=== PATIENT | male | born 1955 | race Caucasian/White ===

== ENCOUNTER → 2016-03-21 | Outpatient (CLI) | payer OTHER ==
[~2016-03-21] MED LIST: MULT-506 PO; ZCRUNK PO
[2016-03-21 11:17] LABS: ALT/SGPT 27 U/L (12-78); AST/SGOT 15 U/L (15-37); BLOOD UREA NITROGEN 12 mg/dl (7-18); BUN/CREATININE RATIO 10.6 (10-20); CALCIUM 9.2 mg/dl (8.5-10.1); CARBON DIOXIDE 29 mmol/L (21-32); CHLORIDE 106 mmol/L (98-107); GLUCOSE 125 mg/dl (70-99); SODIUM 141 mmol/L (136-145)
[2016-03-21 11:20] LABS: ALB/GLOB RATIO 1.3 (0.9-2); ALKALINE PHOSPHATASE 86 U/L (45-117); CHOLESTEROL 183 mg/dl (0-200); CHOLESTEROL/HDL RATIO 3.3; HDL CHOLESTEROL 56 mg/dl; LDL CHOLESTEROL CALCULATED 100 mg/dl; TRIGLYCERIDES 135 mg/dl (0-150); VERY LOW DENSITY LIPOPROT CALC 27 mg/dl
[2016-03-21 11:21] LABS: ESTIMATED AVERAGE GLUCOSE 120 mg/dl; HA1C FLAG Normal (Normal)
== END | disposition home or self-care (01) ==
LOC: C.LABBC 07:57
PROVIDERS: ATTEND Internal Medicine Geriatric Medicine
DX: M19.90 Unspecified osteoarthritis, unspecified site (principal); E78.5 Hyperlipidemia, unspecified; R73.9 Hyperglycemia, unspecified; R03.0 Elevated blood-pressure reading, without diagnosis of hypertension; Z11.59 Encounter for screening for other viral diseases

== ENCOUNTER → 2016-09-17 | Outpatient (CLI) | payer OTHER ==
[2016-09-17 11:35] LABS: ALT/SGPT 30 U/L (12-78); AST/SGOT 20 U/L (15-37); BLOOD UREA NITROGEN 12 mg/dl (7-18); BUN/CREATININE RATIO 11.2 (10-20); CALCIUM 8.6 mg/dl (8.5-10.1); CARBON DIOXIDE 28 mmol/L (21-32); CHLORIDE 107 mmol/L (98-107); GLUCOSE 126 mg/dl (70-99); POTASSIUM 4.2 mmol/L (3.5-5.1); SODIUM 140 mmol/L (136-145)
[2016-09-17 11:36] LABS: ESTIMATED AVERAGE GLUCOSE 131 mg/dl; HA1C FLAG Normal (Normal)
[2016-09-17 11:47] LABS: ALB/GLOB RATIO 1.3 (0.9-2); ALKALINE PHOSPHATASE 92 U/L (45-117)
[2016-09-17 12:59] LABS: LYME DISEASE AB IGG NEG (NEG)
[2016-09-17 13:02] LABS: LYME DISEASE AB IGM NEG (NEG)
== END | disposition home or self-care (01) ==
LOC: C.LABBC 07:58
PROVIDERS: ATTEND Internal Medicine Geriatric Medicine
DX: R73.9 Hyperglycemia, unspecified (principal); I10 Essential (primary) hypertension; R20.0 Anesthesia of skin

== ENCOUNTER → 2016-09-21 | Outpatient (CLI) | payer OTHER ==
[~2016-09-21] MED LIST changes: +GADAVIST IV PRN
--- NOTE | 2016-09-21 08:04 | DIAGNOSTIC IMAGING REPORT ---
BRAIN COMBO HISTORY:60 [id number] Numbness in arms, hands and legs without headache. COMPARISON: Head CT 01/14/2014. TECHNIQUE: Multiplanar multisequence MRI of the brain was obtained utilizing 11 mL Gadavist. 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 There is no restricted diffusion. The midline structures including the corpus callosum, brainstem, optic chiasm, infundibulum, pituitary gland and peroneal gland appear unremarkable the sagittal T1 series. There is no cerebellar tonsillar herniation. There is no acute intracranial hemorrhage, midline shift, abnormal extra-axial collections, hydrocephalus or intracranial mass. Multifocal areas of punctate T2 prolongation within the subcortical and periventricular white matter of the cerebral anterobilaterally are noted. No abnormal enhancement. The globes are symmetric. The mastoid air cells and middle ear cavities are clear. There is minimal polypoid mucosal thickening of the left maxillary sinus. There is mild ethmoid sinus disease. IMPRESSION: 1. No acute intracranial abnormality. No abnormal enhancement. 2. Suggested chronic microvascular ischemic changes. 3. Mild paranasal sinus disease. The above report was generated using voice recognition software. It may contain grammatical, syntax or spelling errors. Electronically signed by: Solitario Mesa M.D. 09/21/2016 8:02 AM Dictated Date/Time: 09/21/2016 7:34 AM
== END | disposition home or self-care (01) ==
LOC: C.MRIBC 06:44
PROVIDERS: ATTEND Internal Medicine Geriatric Medicine
DX: R20.0 Anesthesia of skin (principal)

== ENCOUNTER → 2017-01-17 | Outpatient (CLI) | payer OTHER ==
[~2017-01-17] MED LIST changes: -GADAVIST IV PRN
--- NOTE | 2017-01-17 13:48 | DIAGNOSTIC IMAGING REPORT ---
RIGHT KNEE MRI HISTORY: Right knee pain. RT KNEE MENISCAL TEAR COMPARISON STUDY: None. TECHNIQUE: Multiplanar multisequence MRI of the right knee was performed according to standard department protocol without the use of contrast. FINDINGS: Menisci: The lateral meniscus is intact. There is an oblique tear extending to the undersurface within the posterior horn of the medial meniscus. This also involves the meniscal root. Ligaments: Mild thickening of the proximal MCL suggestive of a chronic/old injury. No surrounding edema to suggest an acute process. The LCL, ACL, PCL are intact. Extensor mechanism: The quadriceps tendon and patellar ligament are intact. Articular cartilage and bone: No fracture or dislocation. Mild cartilage thinning within the central weightbearing portion of the medial femoral condyle. There are also multiple cartilage fissures within the patellar facet. Joint effusion: Small. Soft tissues: Tiny popliteal cyst. IMPRESSION: 1. There is an oblique tear involving the posterior horn of the medial meniscus which extends to the meniscal root. The lateral meniscus is intact. 2. Thickening of the proximal MCL consistent with a chronic/old injury. 3. Small joint effusion. Electronically signed by: Duong Acosta M.D. 01/17/2017 1:46 PM Dictated Date/Time: 01/17/2017 1:41 PM
== END | disposition home or self-care (01) ==
PROVIDERS: ATTEND Orthopaedic Surgery
DX: S83.241A Other tear of medial meniscus, current injury, right knee, initial encounter (principal); X58.XXXA Exposure to other specified factors, initial encounter

== ENCOUNTER → 2017-02-07 | Outpatient (CLI) | payer OTHER ==
[~2017-02-07] MED LIST changes: +AMLO5CAP2 PO; +ATOR-24 PO; +MELO15TA4 PO; -MULT-506 PO; -ZCRUNK PO
[2017-02-07 16:41] LABS: BASO % 0.1 %; BASO ABS # 0.01 K/uL (0-0.2); COMPLETE YES; EOS % 0.9 %; HEMATOCRIT 45.1 % (42-52); IG% 0.1 %; LYMPH % 39.5 %; LYMPH ABS # 3.34 K/uL (1.2-3.4); MEAN CELL VOLUME 96.2 fL (80-100); MEAN CORPUSCULAR HEMOGLOBIN 32.4 pg (25-34); MEAN CORPUSCULAR HGB CONC 33.7 g/dl (32-36); MONO % 8.7 %; NEUT % 50.7 %; PLATELET COUNT 175 K/uL (130-400); RED BLOOD COUNT 4.69 M/uL (4.7-6.1); WHITE BLOOD COUNT 8.46 K/uL (4.8-10.8)
[2017-02-07 17:03] LABS: ALT/SGPT 29 U/L (12-78); AST/SGOT 15 U/L (15-37); BLOOD UREA NITROGEN 13 mg/dl (7-18); BUN/CREATININE RATIO 12.5 (10-20); CALCIUM 8.7 mg/dl (8.5-10.1); CARBON DIOXIDE 29 mmol/L (21-32); CHLORIDE 105 mmol/L (98-107); CREATININE 1.04 mg/dl (0.60-1.40); GLUCOSE 105 mg/dl (70-99); POTASSIUM 3.9 mmol/L (3.5-5.1); SODIUM 137 mmol/L (136-145)
[2017-02-07 17:08] LABS: ALB/GLOB RATIO 1.3 (0.9-2); ALKALINE PHOSPHATASE 94 U/L (45-117); CHOLESTEROL 163 mg/dl (0-200); CHOLESTEROL/HDL RATIO 2.9; HDL CHOLESTEROL 57 mg/dl; LDL CHOLESTEROL CALCULATED 85 mg/dl; PROSTATE SPECIFIC ANTIGEN 0.286 ng/ml (0.000-4.000); TRIGLYCERIDES 103 mg/dl (0-150); VERY LOW DENSITY LIPOPROT CALC 21 mg/dl
== END | disposition home or self-care (01) ==
LOC: C.CPL 16:22
PROVIDERS: ATTEND Orthopaedic Surgery
DX: S83.241A Other tear of medial meniscus, current injury, right knee, initial encounter (principal); X58.XXXA Exposure to other specified factors, initial encounter; E78.5 Hyperlipidemia, unspecified; R73.9 Hyperglycemia, unspecified; I10 Essential (primary) hypertension

== ENCOUNTER → 2017-02-19 | Day surgery (SDC) | payer OTHER ==
[2017-01-24 10:19] VITALS: Ht 180.3 cm; Wt 106.8 kg
[~2017-02-19] VITALS: Ht 180.3 cm; Wt 106.8 kg
[~2017-02-19] MED LIST changes: +ATROPINE SULFATE 0.1 MG/ML 5ML SYR IV PRN; +BUPIVACAINE 0.5 % 5 MG/1 ML MPF 30ML VIAL ONE; +CEFAZOLIN 2000MG IV PUSH 10 ML IV SCH; +EpHEDrine SULFATE INJ 50 MG/ML AMP IV PRN; +EpINEphrine INJ 1MG/ML AMP 1 MG/ML AMP ONE; +FENTANYL CITRATE INJ 50 MCG/1 ML 2 ML VIAL IV PRN; +FENTANYL CITRATE INJ 50 MCG/1 ML 2 ML VIAL ONE; +KETOROLAC TROMETHAMINE 30 MG/ML VIAL ONE; +LACTATED RINGER'S 1000ML 1,000 ML IV SCH; +LIDOCAINE HCL 2% 2 ML VIAL (20MG/ML) ONE; +MIDAZOLAM HCL 1 MG/ML 2ML VIAL ONE; +ONDANSETRON INJ 2 MG/ML 2 ML VIAL IV PRN; +ONDANSETRON INJ 2 MG/ML 2 ML VIAL ONE; +OXYCODONE/ACETAMINOPHEN 5-325 TAB PO PRN; +PROMETHAZINE HCL INJ 6.25 MG in SODIUM CHLORIDE 0.9% 50ML 50 ML IV PRN; +PROPOFOL IV EMULSION 10 MG/ML 20 ML VIAL IV ONE; +ROPIVACAINE 0.5% 5 MG/ML 30 ML VIAL ONE; +SODIUM CHLORIDE 0.9% 1000ML 1,000 ML IV SCH; +TRAM-10 PO
--- NOTE | 2017-02-19 07:47 | History & Physical Bridge - SC ---
H&P Re-Evaluation Bridge Note: I have examined the patient, reviewed the History & Physical and in the interval since the performance of the History & Physical I have noted the following changes of clinical significance: No changes noted
--- NOTE | 2017-02-19 08:39 | [facility] Post Operative Brief Note ---
Immediate Operative Summary Operative Date Feb 19, 2017. Pre-Operative Diagnosis Right Knee Medial Meniscal Tear Post-Operative Diagnosis Same Procedure(s) Performed Right Knee Arthroscopy, Partial Medial Meniscectomy Surgeon Dr. Son Offline Cutter Surgeon(s) Ambrocio Lim PA-C Estimated Blood Loss 0 Findings ABOVE Specimens None Anesthesia LMA Complication(s) None Disposition Recovery Room / PACU
--- NOTE | 2017-02-19 08:48 | Discharge Instructions-SurgCtr ---
Discharge Instructions Date of Service Feb 19, 2017. Visit Reason for Visit: Right Knee Medial Meniscus Tear Discharge Discharge Diagnosis / Problem: SAME ABOVE Discharge Goals Goal(s): Decrease discomfort, Improve function Activity Recommendations Activity Limitations: as noted below Lifting Limitations: gradually increase as tolerated Exercise/Sports Limitations: until after follow-up appointment Shower/Bathe: tomorrow Anesthesia . Post Anesthesia Instructions: If you have had General Anesthesia or IV Sedation: * Do not drive today. * Resume driving when surgeon permits. * Do not make important decisions or sign legal documents today. * Call surgeon for: 1. Temperature elevations greater than 101 degrees F. 2. Uncontrollable pain. 3. Excessive bleeding. 4. Persistent nausea and vomiting. 5. Medication intolerance (nausea, vomiting or rash). * For nausea and vomiting use only clear liquids such as: tea, soda, bouillon until nausea subsides, then gradually increase diet as tolerated. * If you have any concerns or questions, call your surgeon's office. If physician is unavailable and it is an emergency, call 911 or go to the nearest emergency room. . Instructions / Follow-Up Instructions / Follow-Up MEDICATIONS: * Resume previous medications unless instructed otherwise by your surgeon. * Always take pain medication on a full stomach or with food to avoid upset stomach. * Do not drink alcohol or drive while taking narcotics. * Ibuprofen or Tylenol may be taken if narcotic not needed. SPECIAL CARE INSTRUCTIONS: __ None _X_ Keep extremity elevated and iced x 48 hours; apply ice 20-30 minutes 8-10 times/day. May remove at night. __ Crutches __ May discard when able __ Brace/Post-op shoe __ 24 hrs/day __ Remove at night _X_ Dressing __ Maintain until seen in office, may shower with plastic over site _X_ Remove dressings in 24-48 hours and then may shower _X_ Cover incisions with band-aids after showering __ Do not remove steri-strips Call physician if chills or temperature rises above 102 degrees or pain unrelieved by prescribed pain medications. Office [phone] Diet Recommendations Home Diet: resume previous diet Procedures Procedures Performed: Right Knee Arthroscopy, Partial Medial Meniscectomy Pending Studies Studies pending at discharge: no Medical Emergencies . Who to Call and When: Medical Emergencies: If at any time you feel your situation is an emergency, please call 911 immediately. . Non-Emergent Contact Non-Emergency issues call your: Primary Care Provider . . "Provider Documentation" section prepared by Reinaldo Lim. .
--- NOTE | 2017-02-19 09:07 | OPERATIVE REPORT ---
DATE OF OPERATION: 02/19/2017 PREOPERATIVE DIAGNOSIS: Chronic posterior horn medial meniscus tear, right knee. POSTOPERATIVE DIAGNOSIS: Same. PROCEDURE: Right knee arthroscopy, partial medial meniscectomy. SURGEON: Dr. Son. PARCEL WRAPPER: Reinaldo Lim PA-C. ANESTHESIOLOGIST: Dr. Mercado. ANESTHESIA: LMA. DRAINS: None. COMPLICATION: None. CONDITION: The patient tolerated the procedure well and returned to recovery room in apparent satisfactory condition. INDICATIONS FOR SURGERY: Severo is a 61-year-old male who has had almost a year long problem with his knee. Based on his exam, his MRI and history, we thought he had a medial meniscus tear. We diagnosed a medial meniscus tear, went over treatment options, elected to go ahead and proceed with surgery. Procedure, expected outcomes, side effects and risks were all explained in detail. PROCEDURE IN DETAIL: The patient was taken to the OR at which time he was placed supine on the operating table and put to sleep by anesthesia department. Examination of right knee was performed. Ligamentous nolasco, the knee was stable. Went ahead and prepped and draped in usual sterile fashion. Began arthroscopic examination in the anteromedial and anterolateral portals with a tourniquet placed up to 300 mmHg in the thigh. Immediately, we found a flap tear of the posterior horn of the medial meniscus, it was in the root portion, we could see it was flipping in and out of the joint. We reduced it back in and trimmed it out with an upbiting scissors and a full radius resector. Articular surfaces of the knee looked in good shape. No arthritis changes. I could see ACL was fine. Lateral compartment and patellofemoral joint were inspected and all were normal. Knee then was copiously irrigated. Cannulas were removed. Portals were closed with 4-0 nylon sutures. 30 mL of ropivacaine, 10 mg of Toradol and 1 mL of epinephrine was placed in the knee joint. Marcaine without epinephrine was placed in the skin edges after they were closed with 4-0 nylon. Placed a sterile dressing of Xeroform, 4 x 4's, ABD, Sof-Rol and Caesar bandage, and returned to the recovery room in apparent satisfactory condition. SURGICAL FINDINGS: Include chronic posterior horn medial meniscus tear right knee. I attest to the content of the Intraoperative Record and any orders documented therein. Any exception s are noted below.
--- NOTE | 2017-02-19 09:34 | Anesthesia Progress Nt - [facility] ---
Anesthesia Post Op Note Date & Time Feb 19, 2017 at 09:34 Vital Signs Pain Intensity: 2 Vital Signs Past 12 Hours Date Time Temp Pulse Resp B/P (MAP) Pulse Ox O2 Delivery O2 Flow Rate FiO2 02/19/17 09:12 46 18 02/19/17 09:12 45 18 94 02/19/17 09:11 135/77 02/19/17 09:09 47 16 02/19/17 09:09 47 16 95 02/19/17 09:08 46 18 02/19/17 09:08 46 18 95 02/19/17 09:08 36.4 95 Room Air 02/19/17 09:06 134/85 02/19/17 09:03 46 17 96 02/19/17 09:03 48 17 02/19/17 09:02 46 12 02/19/17 09:02 45 12 95 02/19/17 09:01 47 13 02/19/17 09:01 47 13 144/81 96 02/19/17 08:56 45 11 02/19/17 08:56 45 11 133/73 98 02/19/17 08:51 48 11 128/76 95 02/19/17 08:51 49 11 02/19/17 08:47 124/75 02/19/17 08:46 36.5 48 12 124/75 96 Mask 6 02/19/17 07:26 36.8 52 22 121/78 (92) 95 Room Air Notes Mental Status: alert / awake / arousable, participated in evaluation Pt Amnestic to Procedure: Yes Nausea / Vomiting: adequately controlled Pain: adequately controlled Airway Patency, RR, SpO2: stable & adequate BP & HR: stable & adequate Hydration State: stable & adequate Anesthetic Complications: no major complications apparent
--- NOTE | 2017-02-19 09:53 | Anesthesiology Progress Note ---
Anesthesia Post Op Note Date & Time Feb 19, 2017 at 09:53 Vital Signs Pain Intensity: 4.0 Vital Signs Past 12 Hours Date Time Temp Pulse Resp B/P (MAP) Pulse Ox O2 Delivery O2 Flow Rate FiO2 02/19/17 09:39 36.6 43 16 149/88 (108) 97 Room Air 02/19/17 09:12 46 18 02/19/17 09:12 45 18 94 02/19/17 09:11 135/77 02/19/17 09:09 47 16 02/19/17 09:09 47 16 95 02/19/17 09:08 46 18 02/19/17 09:08 46 18 95 02/19/17 09:08 36.4 95 Room Air 02/19/17 09:06 134/85 02/19/17 09:03 46 17 96 02/19/17 09:03 48 17 02/19/17 09:02 46 12 02/19/17 09:02 45 12 95 02/19/17 09:01 47 13 02/19/17 09:01 47 13 144/81 96 02/19/17 08:56 45 11 02/19/17 08:56 45 11 133/73 98 02/19/17 08:51 48 11 128/76 95 02/19/17 08:51 49 11 02/19/17 08:47 124/75 02/19/17 08:46 36.5 48 12 124/75 96 Mask 6 02/19/17 07:26 36.8 52 22 121/78 (92) 95 Room Air Notes Mental Status: alert / awake / arousable, participated in evaluation Pt Amnestic to Procedure: Yes Nausea / Vomiting: adequately controlled Pain: adequately controlled Airway Patency, RR, SpO2: stable & adequate BP & HR: stable & adequate Hydration State: stable & adequate Anesthetic Complications: no major complications apparent
[2017-02-19 10:12] VITALS: BP 139/81; PULSE 45; TEMP 36.6; O2SAT 97
== END | disposition home or self-care (01) ==
LOC: X.SURG 07:16
PROVIDERS: ATTEND Orthopaedic Surgery
DX: M23.221 Derangement of posterior horn of medial meniscus due to old tear or injury, right knee (principal); I10 Essential (primary) hypertension; E66.9 Obesity, unspecified; Z68.33 Body mass index [BMI] 33.0-33.9, adult